=== PATIENT | male | born 1945 ===

== ENCOUNTER 2020-01-27 12:56 | Observation (INO) | payer MEDICARE ==
[~2020-01-27] VITALS: Ht 177.8 cm; Wt 77.6 kg
[2020-01-27] MEDS ORDERED: LACTATED RINGERS 1,000 ML IV SCH ×2 (13:24→14:19)
[2020-01-27] MEDS ORDERED: CHLORHEXIDINE 15 ML UDC MM ONE ×2 (13:30→14:30)
[2020-01-27] MEDS ORDERED: PLEASE ENTER ALLERGIES MC SCH (14:00)
[2020-01-27] MEDS ORDERED: PLEASE ENTER HEIGHT AND WEIGHT MC SCH (14:00)
[2020-01-27 14:24] VITALS: BP 153/92
[2020-01-27] MEDS ORDERED: FLUT1POW2 PO (14:46)
[2020-01-27] MEDS ORDERED: CALC-112 PO (14:46)
[2020-01-27] MEDS ORDERED: METH750T87 PO (14:46)
[2020-01-27] MEDS ORDERED: DEXA0.5S PO (14:46)
[2020-01-27] MEDS ORDERED: MELA1TAB22 PO (14:46)
[2020-01-27] MEDS ORDERED: TRAM50TA2 PO (14:46)
[2020-01-27] MEDS ORDERED: ACET325C6 PO (14:46)
[2020-01-27] MEDS ORDERED: MARINOL PO (14:46)
[2020-01-27] MEDS ORDERED: BISA10SU54 PR (14:46)
[2020-01-27] MEDS ORDERED: HYDR12.517 PO (14:46)
[2020-01-27] MEDS ORDERED: BISA5TAB5 PO (14:46)
[2020-01-27] MEDS ORDERED: OMEP-110 PO (14:46)
[2020-01-27] MEDS ORDERED: SENN1TAB59 PO (14:46)
[2020-01-27] MEDS ORDERED: CHLORHEXIDINE 15 ML UDC ONE (14:49)
[2020-01-27] MEDS ORDERED: MIDAZOLAM 1 MG/ML, 2ML ONE (15:47)
[2020-01-27] MEDS ORDERED: FENTANYL PF 100 MCG/2ML ONE ×3 (15:47→19:58)
[2020-01-27] MEDS ORDERED: PROPOFOL 10 MG/ML, 20ML ONE ×2 (15:51→18:51)
[2020-01-27] MEDS ORDERED: LIDOCAINE 2% 100MG/5ML SYRINGE ONE (16:17)
[2020-01-27] MEDS ORDERED: GLYCOPYRROLATE 0.2MG/1ML, 5ML ONE (18:51)
[2020-01-27] MEDS ORDERED: ROCURONIUM 10MG/ML,5ML ONE (18:51)
[2020-01-27] MEDS ORDERED: SUCCINYLCHOLINE 20 MG/ML, 10ML ONE (18:51)
[2020-01-27] MEDS ORDERED: NEOSTIGMINE 1 MG/ML, 10ML ONE (18:51)
[2020-01-27] MEDS ORDERED: DEXAMETHASONE 4 MG/ML, 1ML ONE (18:51)
[2020-01-27] MEDS ORDERED: CEFAZOLIN 1,000 MG ONE (18:51)
[2020-01-27] MEDS ORDERED: ONDANSETRON 2MG/ML, 2ML ONE (18:51)
[2020-01-27] MEDS ORDERED: ACETAMINOPHEN 650 MG/20.3 ML UDC ONE (19:58)
[2020-01-27] MEDS ORDERED: OXYcodone 5 MG/5 ML ORAL.SOL UDC ONE (19:58)
[2020-01-27] MEDS ORDERED: MEPERIDINE/PF 25MG/0.5ML IVPush PRN (20:00)
[2020-01-27] MEDS ORDERED: PROMETHAZINE 25 MG/ML, 1ML IVPush PRN (20:00)
[2020-01-27] MEDS ORDERED: hydrALAzine 20 MG/ML, 1ML IV PRN (20:00)
[2020-01-27] MEDS ORDERED: LABETALOL 5MG/ML, 20ML IV PRN (20:00)
[2020-01-27] MEDS ORDERED: HYDROmorphone 1 MG/ML, 1ML INJ IVPush PRN (20:00)
[2020-01-27] MEDS ORDERED: HALOPERIDOL 5 MG/ML IV PRN (20:00)
[2020-01-27] MEDS ORDERED: DIPHENHYDRAMINE 50 MG/ML, 1ML IVPush PRN (20:00)
[2020-01-27] MEDS ORDERED: OXYcodone 5 MG/5 ML ORAL.SOL UDC PO PRN (20:00)
[2020-01-27] MEDS: FENTANYL PF 100 MCG/2ML IV PRN ×4 (20:01→20:18)
[2020-01-27] MEDS ORDERED: MORPHINE SULFATE 4 MG/ML, 1ML IVPush PRN (21:30)
[2020-01-27] MEDS ORDERED: ACETAMINOPHEN 325 MG TABLET PO PRN (22:30)
[2020-01-28] MEDS: CEFAZOLIN PMX 2GM/50ML 50 ML IVPB SCH ×2 (00:10→08:33)
[2020-01-28 04:16] VITALS: BP 119/76
[2020-01-28] MEDS: OXYcodone IR 5MG TABLET PO PRN ×2 (04:26→11:02)
[2020-01-28] MEDS ORDERED: OMEPRAZOLE 20 MG CAPSULE.DR PO SCH (06:00)
[2020-01-28 07:26] VITALS: BP 144/74
[2020-01-28] MEDS ORDERED: BISACODYL 5 MG EC TABLET PO SCH (09:00)
[2020-01-28] MEDS ORDERED: HYDROCHLOROTHIAZIDE 12.5 MG CAPSULE PO SCH (09:00)
[2020-01-28] MEDS ORDERED: DEXAMETHASONE 1 MG TABLET PO SCH (09:00)
[2020-01-28] MEDS ORDERED: GABAPENTIN 300 MG CAPSULE PO SCH (09:00)
[2020-01-28] MEDS ORDERED: SENNA/DOCUSATE TABLET PO SCH (09:00)
[2020-01-28] MEDS ORDERED: CALCIUM/VITAMIN D3 250-125 TABLET PO SCH (09:00)
[2020-01-28] MEDS ORDERED: DRONABINOL 5 MG CAPSULE PO SCH (09:00)
[2020-01-28] MEDS ORDERED: MELATONIN 3 MG TABLET PO SCH (21:00)
== END 2020-01-28 11:35 ==
LOC: OR 12:56 → 4NE 20:45 → OR 22:41 → 4NE 22:56
PROVIDERS: ADMIT Orthopaedic Surgery; ATTEND Orthopaedic Surgery
DX: S82.871A Displaced pilon fracture of right tibia, initial encounter for closed fracture (principal); Z20.828 Contact with and (suspected) exposure to other viral communicable diseases; S82.831A Other fracture of upper and lower end of right fibula, initial encounter for closed fracture; S32.009A Unspecified fracture of unspecified lumbar vertebra, initial encounter for closed fracture; I10 Essential (primary) hypertension; Z79.899 Other long term (current) drug therapy; W11.XXXA Fall on and from ladder, initial encounter; Y93.89 Activity, other specified; Y92.89 Other specified places as the place of occurrence of the external cause
CPT/HCPCS: 20694; 27758; 73590; 76000; 87635; 93005; 96365; 96366; C1713; G0378; J0330; J0690; J2250; J2405; J2704; J3010; J7120; J1100; J2710